=== PATIENT | female | born 1980 | race Caucasian/White ===

== ENCOUNTER 2022-05-22 05:02 | Emergency (ER) | payer OTHER ==
[2022-05-22] MEDS ORDERED: IBUPROFEN800 MG PO (06:32)
[2022-05-22] MEDS ORDERED: HYDROCODON-ACE1 EAC4 PO (06:32)
== END 2022-05-22 06:55 | disposition home or self-care (01) ==
LOC: ER1 05:02
DX: S93.402A Sprain of unspecified ligament of left ankle, initial encounter (principal); S83.92XA Sprain of unspecified site of left knee, initial encounter; J45.909 Unspecified asthma, uncomplicated; F17.200 Nicotine dependence, unspecified, uncomplicated; W17.89XA Other fall from one level to another, initial encounter; Y92.009 Unspecified place in unspecified non-institutional (private) residence as the place of occurrence of the external cause
CPT/HCPCS: 73562; 73590; 73610; 99283